=== PATIENT | female | born 2000 | race Two or more races ===

== ENCOUNTER 2024-06-11 11:35 | Emergency (ER) | payer MEDICAID, SELFPAY ==
[2024-06-11 12:08] VITALS: BP 112/78; PULSE 120; RESP 19; TEMP 39.5; O2SAT 96; BMI 25.2
--- NOTE | 2024-06-11 12:13 | XR_ITS ---
Examination: PA lateral chest 2 views TECHNIQUE: Upright PA lateral chest 2 views Exam date and time: June 11, 2024 1300 hours INDICATIONS: Shortness of breath beginning 2 days ago. FINDINGS: Normal heart size Lungs are clear. Thoracic dextroscoliosis 10 degrees 2 mm probable granuloma in the right upper lobe IMPRESSION: No pneumonia or pulmonary edema
[2024-06-11] MEDS: IBUPROFEN TAB 400 MG TABLET 800 MG PO (12:16)
[2024-06-11 12:59] LABS: Influenza A Ag Positive; Influenza B Ag Negative; Strep A Rapid Negative (Negative)
--- NOTE | 2024-06-11 13:45 | EDNOTE_ITS ---
Upper Respiratory Inf. RME/HPI General Chief Complaint: Flu Like Symptoms Stated Complaint: FLU SYMPTOMS x 2 DAYS Time Seen by Provider: 06/11/24 11:42 Arrival date/time: 06/11/24 11:35 24-year-old female with medical history significant for asthma presents emergency department complaint of the leg symptoms for the last 2 days patient reports cough, congestion, runny nose and bodyaches there are no other associated symptoms or aggravating factors no other modifying factors, patient denies taking medication before coming to ER today Limitations: no limitations Related Data Previous Rx's ?Medication ?Instructions ?Recorded albuterol sulfate 2.5 mg/3 mL 2.5 mg (3 mL) inhalation QID PRN 10/23/18 (0.083 %) solution for nebulization shortness of breath or wheezing #90 mL cetirizine 10 mg capsule (Zyrtec) 10 mg PO QDAY PRN allergy symptoms 10/23/18 #30 caps albuterol sulfate 90 mcg/actuation 2 puff inhalation Q6H PRN 06/11/24 aerosol inhaler (Ventolin HFA) shortness of breath or wheezing #8.5 grams benzonatate 100 mg capsule 100 mg PO TID #14 caps 06/11/24 ibuprofen 600 mg tablet 600 mg PO Q6H #30 tabs 06/11/24 Allergies Allergy/AdvReac Type Severity Reaction Status Date / Time olive oil Allergy Severe Swelling Verified 06/11/24 11:39 of Lip/Tongue/Throat Review of Systems Review of Systems Systems Reviewed: All systems reviewed, normal except as documented Constitutional Constitutional: Reports system reviewed and no additional complaints, except as documented, Denies fever(s) and Denies headache(s) Eyes Eyes: Reports system reviewed and no additional complaints, except as documented and Denies blurry vision ENT Ears, Nose, Mouth, and Throat: Reports system reviewed and no additional complaints, except as documented, Denies headache(s), Denies nasal congestion and Denies nasal discharge Cardiovascular Cardiovascular: Reports system reviewed and no additional complaints, except as documented, Denies chest pain and Denies dyspnea Respiratory Respiratory: Reports system reviewed and no additional complaints, except as documented, Reports chest congestion, Reports cough and Denies dyspnea Gastrointestinal Gastrointestinal: Reports system reviewed and no additional complaints, except as documented and Denies abdominal pain Integumentary/Breasts Skin/Breast: Reports system reviewed and no additional complaints, except as documented and Denies rash Neurologic Neurologic: Reports system reviewed and no additional complaints, except as documented, Reports as per HPI and Denies headache(s) Past Medical History Past Medical History CARDIAC: Negative Congestive Heart Failure RESPIRATORY: Positive Asthma; Negative Chronic Obstructive Pulmonary Disease (COPD) GENITOURINARY: Negative Renal Disease ENDOCRINE: Negative Diabetes Mellitus Type 1 or Diabetes Mellitus Type 2 Social History SMOKING STATUS: Never smoker ED Exam General Limitations: Present no limitations General appearance: Present alert and in no apparent distress Head Head exam: Present atraumatic Eye Eye exam: Present normal appearance, PERRL and EOMI; Absent conjunctival injection ENT ENT exam: Present normal exam, normal oropharynx and mucous membranes moist Neck Neck exam: Present normal inspection, full ROM and trachea midline Chest Chest inspection: Present normal inspection and symmetric chest wall rise Respiratory Respiratory exam: Present normal lung sounds bilaterally; Absent respiratory distress, wheezes, stridor or accessory muscle use Cardiovascular Cardiovascular exam: Present regular rate, normal rhythm and normal heart sounds Abdominal Exam Abdominal exam: Present soft and normal bowel sounds; Absent distention, tenderness, guarding, rebound or rigidity Extremities Exam Extremities exam: Present normal inspection, full ROM and normal capillary refill; Absent tenderness Back Exam Back exam: Present normal inspection and full ROM Neurological Exam Neurological exam: Present alert, oriented X3 and CN II-XII intact Psychiatric Psychiatric exam: Present normal affect and normal mood Skin Skin exam: Present warm, dry, intact and normal color Course Quality Measures none Orders Category Date Time Status XR chest 2V Stat Exams 06/11/24 12:13 Completed Influenza A & B Rapid Panel Stat Lab 06/11/24 12:24 Completed Strep A Rapid Stat Lab 06/11/24 12:24 Completed Ibuprofen Tab [Motrin Tab] Med 06/11/24 12:13 Discontinued 800 mg PO X1 ONE Vital Signs Vital signs: Vital Signs Temperature 103.1 F H 06/11/24 12:08 Pulse Rate 120 H 06/11/24 12:08 Respiratory Rate 19 06/11/24 12:08 Blood Pressure 112/78 06/11/24 12:08 Pulse Oximetry (%) 96 06/11/24 12:08 Oxygen Delivery Method Room Air 06/11/24 12:08 O2 saturation 96% room air within normal Upper Respiratory Infection MDM Narrative MDM Narrative:: 24-year-old female with medical history significant for asthma presents emergency department complaint of the leg symptoms for the last 2 days patient reports cough, congestion, runny nose and bodyaches there are no other associated symptoms or aggravating factors no other modifying factors, patient denies taking medication before coming to ER today On exam patient does not appear ill or toxic patient is not appear any acute distress despite having fever Patient given medication for the fever Patient checked for flu and strep and chest x-ray is obtained Chest x-ray no acute pneumonic infiltrates noted Flu is positive strep is negative Patient discharged home in no distress to follow-up with primary care doctor in the next 24 to 48 hours and for any worsening symptoms to return to the ER immediately Patient data External records reviewed:: [facility] previous records Clinical information provided by:: patient Social determinants that could affect healthcare access:: none Patient has the following chronic illnesses:: Asthma How is presenting disease/condition affected by chronic disease/condition?: caused by Evaluation data The following diagnostics were reviewed and interpreted by me:: lab results and radiology exam(s) Lab and/or radiology exams considered but not ordered:: Labs radiology obtain Interpretation Summary: Reviewed by me Medications / Prescriptions Medications or Prescriptions considered but not ordered:: Given Medication administrations:: Medication Administration History Discontinued Medications Ibuprofen (Ibuprofen Tab 400 Mg Tablet) 800 mg PO X1 ONE Stop: 06/11/24 12:14 Last Admin: 06/11/24 12:16 Dose: 800 mg Documented By: ASHLEY Given Consultations Consultation(s) initiated? (list below): No Diagnosis Upper Respiratory Differential Diagnosis: upper respiratory infection, viral infection, bronchitis and pharyngitis Most likely diagnosis given after review of the tests above:: Asthma, URI Admission Indicated Admission indicated?: not indicated Admission Request Was there a request for admission?: No Disposition Plan Disposition Plan: Discharge Discharge Attestation Discharge Attestation: The patient and all family members were given an opportunity to ask questions and understood the discharge instructions. Discharge instructions specifically effects, indications for sooner follow up or return to the emergency department, and the expected course of current diagnosis. Patient condition: Stable Discharge Plan Plan Patient Disposition: HOME (Self Care) Disposition Comment: Stable Prescriptions/Referrals Prescriptions/Med Rec: New benzonatate 100 mg capsule 100 mg PO TID Qty: 14 0RF ibuprofen 600 mg tablet 600 mg PO Q6H Qty: 30 0RF albuterol sulfate [Ventolin HFA] 90 mcg/actuation HFA aerosol inhaler 2 puff inhalation Q6H PRN (Reason: shortness of breath or wheezing) Qty: 8.5 0RF No Action albuterol sulfate 2.5 mg /3 mL (0.083 %) solution for nebulization 2.5 mg INH QID PRN (Reason: shortness of breath or wheezing) Qty: 90 0RF Zyrtec 10 mg capsule 10 mg PO QDAY PRN (Reason: allergy symptoms) Qty: 30 0RF Referrals: No Primary/Family,Physician [Primary Care Provider] - In 1 week Problem List Clinical Impression: Influenza Patient/Caregiver Discharge Instructions Education Materials: ED Influenza (Adult) Additional Instructions: Please follow up with your primary care doctor in the next 24-48hrs for any worsening symptoms return here immediately Print Language: Kinyarwanda Stand Alone Forms: [place] Award Info., Work/School Release, Patient Portal Info Letter PA/SARIKA Supervising Physician PA/SARIKA Supervising Physician: Dr Sutton
== END 2024-06-11 13:57 | disposition home or self-care (01) ==
PROVIDERS: Nurse Practitioner Primary Care; Emergency Provider Emergency Medicine
DX: J11.1 Influenza due to unidentified influenza virus with other respiratory manifestations (principal)
CPT/HCPCS: 71046; 87502; 87651; 99283; A9270